=== PATIENT | male | born 1980 | race Caucasian/White ===

== ENCOUNTER → 2020-04-04 | Outpatient (REF) | payer OTHER ==
[~2020-04-04] MED LIST: META28.32 PO
[2020-06-04 09:22] LABS: BASO # 0.1 10^3/uL (0.0-0.2); BASO % 1.5 % (0.0-1.0); EOS # 0.4 10^3/uL (0.0-0.5); EOS % 5.4 % (0.0-3.0); HEMATOCRIT 45.6 % (42.0-52.0); HEMOGLOBIN 15.6 g/dl (13.5-17.5); LYMPH # 2.1 10^3/uL (1.5-5.0); LYMPH % 30.9 % (24.0-44.0); MEAN CORPUSCULAR HEMOGLOBIN 30.5 pg (27.0-33.0); MEAN CORPUSCULAR HGB CONC 34.2 g/dl (32.0-36.5); MEAN CORPUSCULAR VOLUME 89.2 fl (80.0-96.0); MONO # 0.6 10^3/uL (0.0-0.8); MONO % 8.8 % (0.0-5.0); NEUTROPHILS # 3.5 10^3/uL (1.5-8.5); NEUTROPHILS % 53.1 % (36.0-66.0); PLATELET COUNT, AUTOMATED 349 10^3/uL (150-450); RED BLOOD COUNT 5.11 10^6/uL (4.30-6.10); WHITE BLOOD COUNT 6.7 10^3/uL (4.0-10.0)
== END ==
LOC: M WUC 08:44
PROVIDERS: ATTEND Physician Assistant
DX: R10.32 Left lower quadrant pain (principal); R50.9 Fever, unspecified

== ENCOUNTER → 2020-04-27 | Outpatient (CLI) | payer OTHER | LOC: M LABSMTC 11:07 | PROVIDERS: ATTEND Anesthesiology | DX: Z01.818 Encounter for other preprocedural examination (principal); Z11.59 Encounter for screening for other viral diseases | CPT/HCPCS: C9803; U0003 ==

== ENCOUNTER 2020-05-02 09:52 | Day surgery (SDC) | payer OTHER ==
[~2020-05-02] VITALS: Ht 172.7 cm; Wt 95.3 kg
[~2020-05-02 09:52] MED LIST changes: +LIDOCAINE 2% 100MG/5ML SDV (FOR ANES.) As Ordered ONE; +NS 1,000 ML IV ONE; +propofoL 200 MG/20 ML VIAL As Ordered ONE
[2020-05-02 11:30] VITALS: BP 113/62
--- NOTE | 2020-05-02 11:39 | ROOR ---
Patient Name: Myles Chan Procedure Date: 05/02/2020 10:44 AM Date of : 1980 Age: 39 Room: [facility] Gender: Male Note Status: Finalized Procedure: Colonoscopy Indications: Abdominal pain in the left lower quadrant Providers: Sherwin Reyes MD Referring MD: HELENA POLO NP Requesting Provider: Medicines: Monitored Anesthesia Care Complications: No immediate complications. Procedure: Pre-Anesthesia Assessment: - Prior to the procedure, a History and Physical was performed, and patient medications and allergies were reviewed. The patient is competent. The risks and benefits of the procedure and the sedation options and risks were discussed with the patient. All questions were answered and informed consent was obtained. Patient identification and proposed procedure were verified by the physician, the nurse and the anesthesiologist in the endoscopy suite. Mental Status Examination: alert and oriented. Airway Examination: normal oropharyngeal airway and neck mobility. Respiratory Examination: clear to auscultation. CV Examination: normal. Prophylactic Antibiotics: The patient does not require prophylactic antibiotics. Prior Anticoagulants: The patient has taken no previous anticoagulant or antiplatelet agents. ASA Grade Assessment: II - A patient with mild systemic disease. After reviewing the risks and benefits, the patient was deemed in satisfactory condition to undergo the procedure. The anesthesia plan was to use monitored anesthesia care (MAC). Immediately prior to administration of medications, the patient was re-assessed for adequacy to receive sedatives. The heart rate, respiratory rate, oxygen saturations, blood pressure, adequacy of pulmonary ventilation, and response to care were monitored throughout the procedure. The physical status of the patient was re-assessed after the procedure. The Colonoscope was introduced through the anus and advanced to the cecum, identified by appendiceal orifice and ileocecal valve. The colonoscopy was performed without difficulty. The patient tolerated the procedure well. The quality of the bowel preparation was good. Findings: The perianal and digital rectal examinations were normal. Multiple medium-mouthed diverticula were found in the sigmoid colon. The entire examined colon appeared normal. No additional abnormalities were found on retroflexion. There was a small lipoma, in the ascending colon. Impression: - Diverticulosis in the sigmoid colon. - The entire examined colon is normal. - No specimens collected. Recommendation: - Discharge patient to home (ambulatory). - High fiber diet indefinitely. - Use original regular Metamucil one teaspoon PO daily indefinitely. Sherwin Reyes MD Sherwin Reyes MD 05/02/2020 11:13:50 AM Electronically signed by Sherwin Reyes MD Number of Addenda: 0 Note Initiated On: 05/02/2020 10:44 AM Estimated Blood Loss: Estimated blood loss: none.
== END 2020-05-02 11:38 | disposition home or self-care (01) ==
LOC: M OPP 09:52
PROVIDERS: ATTEND Surgery
DX: R10.32 Left lower quadrant pain (principal); K57.30 Diverticulosis of large intestine without perforation or abscess without bleeding; D17.5 Benign lipomatous neoplasm of intra-abdominal organs; F17.220 Nicotine dependence, chewing tobacco, uncomplicated; Z88.0 Allergy status to penicillin; Z88.1 Allergy status to other antibiotic agents

== ENCOUNTER → 2020-05-10 | Outpatient (CLI) | payer OTHER ==
[~2020-05-10] MED LIST changes: -LIDOCAINE 2% 100MG/5ML SDV (FOR ANES.) As Ordered ONE; -NS 1,000 ML IV ONE; -propofoL 200 MG/20 ML VIAL As Ordered ONE
--- NOTE | 2020-05-23 12:39 | REP ---
RIGHT FOREARM SERIES: CLINICAL: Strain. Pain. TECHNIQUE: AP and lateral view of the right forearm. FINDINGS: The osseous structures and joint spaces are intact and normal. No acute fracture or dislocation. Surrounding soft tissues are unremarkable. IMPRESSION: Normal right forearm radiographs. MTDD
--- NOTE | 2020-05-23 12:40 | REP ---
RIGHT ELBOW X-RAY: CLINICAL: Strain. Pain. TECHNIQUE: AP, lateral, bilateral oblique views of the right elbow. FINDINGS: Osseous structures and joint spaces are intact and normal. Anterior and posterior fat pads are in normal position. Surrounding soft tissues are unremarkable. IMPRESSION: Normal age appropriate right elbow radiographs. MTDD
--- NOTE | 2020-05-23 12:41 | REP ---
RIGHT HUMERUS RADIOGRAPHS: CLINICAL: Pain. Strain. TECHNIQUE: AP and lateral views of the right humerus. FINDINGS: Osseous structures, joint spaces and surrounding soft tissues are normal. No acute fracture or dislocation. No subcutaneous emphysema or foreign body. IMPRESSION: Normal age appropriate right humerus radiographs. MTDD
--- NOTE | 2020-05-23 12:41 | REP ---
RIGHT SHOULDER SERIES: CLINICAL: Strain. Pain. TECHNIQUE: Internal rotation, external rotation and Y-view of the right shoulder. FINDINGS: Osseous structures and joint spaces are intact and normal. The acromioclavicular joint and glenohumeral joints are normal in appearance and without fracture or dislocation. The subacromial space is normal. No arthritic findings appreciated. No loose bodies identified. IMPRESSION: Normal age appropriate right shoulder radiographs. MTDD
== END ==
LOC: M WUC 13:28
PROVIDERS: ATTEND Physician Assistant
DX: S56.211A Strain of other flexor muscle, fascia and tendon at forearm level, right arm, initial encounter (principal); S46.821A Laceration of other muscles, fascia and tendons at shoulder and upper arm level, right arm, initial encounter; X58.XXXA Exposure to other specified factors, initial encounter; Y92.89 Other specified places as the place of occurrence of the external cause

== ENCOUNTER → 2021-01-29 | Outpatient (CLI) | payer OTHER ==
--- NOTE | 2021-01-29 16:01 | REP ---
INDICATION: PAIN. COMPARISON: None. TECHNIQUE: Internal rotation, external rotation, axillary and Y-view of the right shoulder. FINDINGS: Acromioclavicular and glenohumeral joints appear intact and relatively normal. Subacromial space is normal. No periarticular calcifications or loose bodies are identified. Surrounding soft tissues are unremarkable. IMPRESSION: Normal age-appropriate right shoulder radiographs. <Electronically signed by Jose A Funez > 01/29/21 [id number]
== END ==
LOC: M SOG 15:39
PROVIDERS: ATTEND Orthopaedic Surgery Sports Medicine
DX: M75.41 Impingement syndrome of right shoulder (principal)

== ENCOUNTER → 2022-09-12 | Outpatient (CLI) | payer OTHER | LOC: M WUC 12:59 | PROVIDERS: ATTEND Physician Assistant | DX: S46.812A Strain of other muscles, fascia and tendons at shoulder and upper arm level, left arm, initial encounter (principal); S16.1XXA Strain of muscle, fascia and tendon at neck level, initial encounter; M25.78 Osteophyte, vertebrae; X58.XXXA Exposure to other specified factors, initial encounter; Y92.9 Unspecified place or not applicable; Y93.9 Activity, unspecified; Y99.9 Unspecified external cause status ==

== ENCOUNTER → 2022-09-26 | Outpatient (CLI) | payer OTHER | LOC: M WUC 13:07 | PROVIDERS: ATTEND Physician Assistant | DX: S20.212A Contusion of left front wall of thorax, initial encounter (principal); X58.XXXA Exposure to other specified factors, initial encounter; Y92.9 Unspecified place or not applicable; Y93.9 Activity, unspecified; Y99.9 Unspecified external cause status ==

== ENCOUNTER → 2022-12-03 | Outpatient (CLI) | payer OTHER ==
[2022-12-03 08:49] LABS: PLATELET COUNT, AUTOMATED 253 10^3/uL (150-450)
[2022-12-03 09:40] LABS: INR 0.91; PROTHROMBIN TIME 12.4 SECONDS (12.5-14.5)
[2022-12-03 09:41] LABS: PARTIAL THROMBOPLASTIN TIME 28.2 SECONDS (24.8-34.2)
== END ==
LOC: M LAB 08:06
PROVIDERS: ATTEND Physician Assistant
DX: Z01.812 Encounter for preprocedural laboratory examination (principal)

== ENCOUNTER → 2023-09-29 | Outpatient (CLI) | payer OTHER | LOC: M PLALAB 09:45 | PROVIDERS: ATTEND Orthopaedic Surgery | DX: M25.511 Pain in right shoulder (principal); M54.12 Radiculopathy, cervical region; M47.892 Other spondylosis, cervical region ==

== ENCOUNTER → 2023-10-29 | Outpatient (CLI) | payer OTHER ==
[2023-10-29 08:01] LABS: PLATELET COUNT, AUTOMATED 286 10^3/uL (150-450)
[2023-10-29 08:12] LABS: INR 1.04; PARTIAL THROMBOPLASTIN TIME 30.5 SECONDS (24.8-34.2); PROTHROMBIN TIME 13.3 SECONDS (12.5-14.5)
[2023-10-29 08:19] LABS: COLLAGEN EPINEPHRINE 131 SECONDS (74-162)
== END ==
LOC: M LAB 07:37
PROVIDERS: ATTEND Physician Assistant
DX: Z01.818 Encounter for other preprocedural examination (principal)

== ENCOUNTER → 2023-11-25 | Outpatient (CLI) | payer OTHER ==
[2023-11-25 13:17] LABS: HEMATOCRIT 46.5 % (42.0-52.0); HEMOGLOBIN 16.2 g/dl (13.5-17.5); MEAN CORPUSCULAR HEMOGLOBIN 30.7 pg (27.0-33.0); MEAN CORPUSCULAR HGB CONC 34.8 g/dl (32.0-36.5); MEAN CORPUSCULAR VOLUME 88.1 fl (80.0-96.0); PLATELET COUNT, AUTOMATED 278 10^3/uL (150-450); RED BLOOD COUNT 5.28 10^6/uL (4.30-6.10); WHITE BLOOD COUNT 7.6 10^3/uL (4.0-10.0)
[2023-11-25 13:42] LABS: ALBUMIN 4.1 G/DL (3.2-5.2); ALKALINE PHOSPHATASE 90 U/L (46-116); ALT/SGPT 41 U/L (7.0-40); AST/SGOT 17 U/L (<34); BILIRUBIN,TOTAL 0.5 MG/DL (0.3-1.2); BLOOD UREA NITROGEN 17 MG/DL (9-23); CALCIUM LEVEL 9.3 MG/DL (8.5-10.1); CARBON DIOXIDE LEVEL 28 MMOL/L (20-31); CHLORIDE LEVEL 108 MMOL/L (98-107); CHOLESTEROL LEVEL 165 MG/DL (<200); CHOLESTEROL RISK RATIO 4.15 (<5); CREATININE FOR GFR 0.94 MG/DL (0.70-1.30); GLOMERULAR FILTRATION RATE > 60.0 (>60); GLUCOSE, FASTING 86 MG/DL (60-100); HDL CHOLESTEROL 39.7 MG/DL (>40); LDL CHOLESTEROL 100.5 MG/DL (<100); NON-HDL-C 125.3 MG/DL; POTASSIUM SERUM 4.7 MMOL/L (3.5-5.1); SODIUM LEVEL 143 MMOL/L (136-145); TRIGLYCERIDES LEVEL 124 MG/DL (<150)
[2023-11-25 14:01] LABS: HEMOGLOBIN A1c 5.1 % (4.0-6.0)
== END ==
LOC: M PLALAB 09:04
PROVIDERS: ATTEND Registered Nurse
DX: Z00.00 Encounter for general adult medical examination without abnormal findings (principal); Z13.220 Encounter for screening for lipoid disorders; Z83.3 Family history of diabetes mellitus

== ENCOUNTER → 2024-07-07 | Outpatient (CLI) | payer OTHER ==
[2024-07-07 13:12] LABS: PLATELET COUNT, AUTOMATED 265 10^3/uL (150-450)
[2024-07-07 13:28] LABS: INR 1.02; PROTHROMBIN TIME 13.8 SECONDS (12.5-14.5)
== END ==
LOC: M PLALAB 11:37
PROVIDERS: ATTEND Physician Assistant
DX: Z01.818 Encounter for other preprocedural examination (principal)

== ENCOUNTER → 2024-07-07 | Outpatient (CLI) | payer OTHER ==
[2024-07-07 13:27] LABS: BILIRUBIN,DIRECT 0.3 MG/DL (<0.4); BILIRUBIN,TOTAL 0.8 MG/DL (0.3-1.2); TOTAL PROTEIN 7.3 G/DL (5.7-8.2)
== END ==
LOC: M PLALAB 11:38
PROVIDERS: ATTEND Registered Nurse
DX: R94.5 Abnormal results of liver function studies (principal)